=== PATIENT | female | born 1995 | race Caucasian/White ===

== ENCOUNTER 2017-06-14 05:09 | Day surgery (SDC) | payer BC, MEDICAID ==
[~2017-06-14] VITALS: Ht 162.6 cm; Wt 52.6 kg
[~2017-06-14 05:09] MED LIST: AMOXICILLIN 8751 TAB PO; CEFTIN 250250 MG/TAB PO; METOPROLOL TART25 MG PO; MOTRIN 600600 MG/TAB PO; MOTRIN 800800 MG/TAB PO; MULTIPLE VITAMI1 CAP PO; NECON 0.5/35 351 TA1 PO; PERCOCET 325 MG1 TA2 PO; PRENATAL1 TA4 PO; PRILOSEC 20MG20 MG PO; SENOKOT S 50 MG1 TAB PO; ZOLOFT 25MG25 MG PO
[2017-06-14 05:56] VITALS: BP 112/70; PULSE 74; TEMP 98
[2017-06-14] MEDS ORDERED: NEXPLANON68 MG ID (06:04)
[2017-06-14] MEDS ORDERED: ALEVE 220MG220 MG PO (06:04)
[2017-06-14] MEDS ORDERED: NORCO 325 MG-51 TAB PO (08:21)
[2017-06-14 09:10] VITALS: BP 104/65; PULSE 71; TEMP 97.4
[2017-06-14 09:25] VITALS: BP 101/55; PULSE 62
[2017-06-14 09:35] VITALS: BP 101/45; PULSE 58
[2017-06-14 09:50] VITALS: BP 100/52; PULSE 68
[2017-06-14 10:20] VITALS: BP 95/51; PULSE 66
== END 2017-06-14 11:00 | disposition home or self-care (01) ==
LOC: SDCO 05:09
DX: K66.1 Hemoperitoneum (principal); R10.84 Generalized abdominal pain; Z82.3 Family history of stroke; Z80.3 Family history of malignant neoplasm of breast; Z80.42 Family history of malignant neoplasm of prostate
CPT/HCPCS: J1885; J2250; J2405; J2550; J2704; J3010; J7120

== ENCOUNTER 2017-09-04 19:35 | Emergency (ER) | payer BC, MEDICAID ==
[~2017-09-04] VITALS: Ht 160 cm; Wt 52.7 kg
[~2017-09-04 19:35] MED LIST changes: +ALEVE 220MG220 MG PO; +NEXPLANON68 MG ID; +NORCO 325 MG-51 TAB PO
[2017-09-04 19:37] VITALS: BP 137/86; TEMP 98.6
[2017-09-04 20:08] LABS: COLLECTION METHOD CLEAN CATCH
[2017-09-04 20:12] LABS: BASO % 0.4 % (0.0-2.0); EOS # 0.1 (0.0-0.7); EOS % 1.3 % (0-4.0); GRAN # 5.1 (1.4-6.5); HEMOGLOBIN 13.7 g/dl (12.5-16.0); LYMPH # 1.3 (1.2-3.4); LYMPH % 18.2 % (20.0-51.0); MEAN CELL VOLUME 88 fl (80.0-100.0); MEAN CORPUSCULAR HEMOGLOBIN 29 pg (27.0-31.0); MEAN CORPUSCULAR HGB CONC 33 g/dl (33.0-37.0); MEAN PLATELET VOLUME 11.5 fl (7.4-10.4); MONO # 0.5 (0.1-0.6); PLATELET COUNT 171 K/mm3 (130-400); RED BLOOD COUNT 4.68 M/mm3 (4.10-5.30); REDCELL DISTRIBUTION WIDTH-CV 12.6 % (11.5-14.5)
[2017-09-04 20:14] LABS: MUCOUS Present /lpf; PH 6 (5-8); URINE APPEARANCE Hazy; URINE BACTERIA Rare /hpf; URINE BILIRUBIN Negative (NEGATIVE); URINE BLOOD 1+ (NEGATIVE); URINE COLOR Yellow; URINE GLUCOSE Negative (NEGATIVE); URINE KETONE Negative (NEGATIVE); URINE LEUKOCYTE ESTERASE Negative (NEGATIVE); URINE NITRATE Negative (NEGATIVE); URINE PROTEIN(semi-quant) Negative (NEGATIVE)
[2017-09-04 20:24] LABS: INFLUENZA A NEGATIVE; INFLUENZA B NEGATIVE
[2017-09-04 20:25] LABS: ALBUMIN 5.1 gm/dL (3.5-5.0); BILIRUBIN,TOTAL 0.3 mg/dL (0.0-1.0); C-REACTIVE PROTEIN 3.1 mg/dL (0.0-0.9); CALCIUM 9.5 mg/dL (8.4-10.2); CREATININE, serum 0.56 mg/dL (0.52-1.25); POTASSIUM 3.6 mmol/L (3.4-5.0)
[2017-09-04] MEDS ORDERED: CEFTIN500 MG PO (21:03)
[2017-09-04 21:37] VITALS: PULSE 70
== END 2017-09-04 21:30 | disposition home or self-care (01) ==
LOC: COL.ER 19:35
PROVIDERS: Emergency Medicine
DX: N39.0 Urinary tract infection, site not specified (principal)
CPT/HCPCS: J1885; J2405; J2550; J7030

== ENCOUNTER 2018-01-06 21:14 | Emergency (ER) | payer BC ==
[~2018-01-06] VITALS: Ht 162.6 cm; Wt 52.7 kg
[~2018-01-06 21:14] MED LIST changes: +CEFTIN500 MG PO
[2018-01-06 21:24] VITALS: BP 139/85; TEMP 97.6
[2018-01-07 00:37] VITALS: PULSE 90
== END 2018-01-07 00:35 | disposition home or self-care (01) ==
LOC: COL.ER 21:14
DX: K59.00 Constipation, unspecified (principal)

== ENCOUNTER 2018-07-03 08:41 | Inpatient (IN) | payer BC ==
[~2018-07-03] VITALS: Ht 160 cm; Wt 55.9 kg
[2018-07-04] VITALS (12 sets, daily range): BP systolic 98–114; BP diastolic 43–76; PULSE 62–84; TEMP 97.6–99.2
[2018-07-04] MEDS ORDERED: ORILISSA150 MG PO (05:43)
[2018-07-05 00:30] VITALS: BP 89/39; PULSE 77; TEMP 99
[2018-07-05 04:00] VITALS: BP 88/44; PULSE 76; TEMP 98.3
[2018-07-05 07:45] VITALS: BP 89/43; PULSE 74; TEMP 98.4
[2018-07-05] MEDS ORDERED: IBU800 M1 PO (08:30)
== END 2018-07-05 10:10 | disposition home or self-care (01) | DRG 743 ==
LOC: INPTSU 07-04 05:15 → OB 07-04 05:15
PROVIDERS: Student in an Organized Health Care Education/Training Program
PROC: 0UT9FZZ Resection of Uterus, Via Natural or Artificial Opening With Percutaneous Endoscopic Assistance (ICD-10-PCS; principal; 2018-07-04 07:30)
PROC: 0UT7FZZ Resection of Bilateral Fallopian Tubes, Via Natural or Artificial Opening With Percutaneous Endoscopic Assistance (ICD-10-PCS; 2018-07-04 07:30)
DX: N80.9 Endometriosis, unspecified (principal); R10.2 Pelvic and perineal pain; N94.6 Dysmenorrhea, unspecified; N30.10 Interstitial cystitis (chronic) without hematuria; F41.8 Other specified anxiety disorders; K21.9 Gastro-esophageal reflux disease without esophagitis
CPT/HCPCS: J0690; J1100; J1885; J2175; J2270; J2405; J2550; J2704; J3010; J7120

== ENCOUNTER → 2018-10-10 | Outpatient (CLI) | payer BC ==
[~2018-10-10] MED LIST changes: +IBU800 M1 PO; +ORILISSA150 MG PO
== END ==
LOC: MC.RAD 09:44
DX: N64.4 Mastodynia (principal); N64.59 Other signs and symptoms in breast